=== PATIENT | female | born 1990 | race Caucasian/White ===

== ENCOUNTER → 2017-05-30 | Outpatient (CLI) | payer BC ==
[2017-05-30 16:54] LABS: URINE APPEARANCE CLEAR (CLEAR); URINE BILIRUBIN NEG (NEG); URINE COLOR YELLOW; URINE EPITHELIAL CELL AUTO 20-30 /lpf (0-5); URINE NITRITE POS (NEG); URINE PH 5.5 (4.5-7.5); URINE SPECIFIC GRAVITY 1.028 (1.000-1.030); UROBILINOGEN NEG (NEG)
[2017-05-30 16:59] LABS: MANUAL MICROSCOPIC REQUIRED? NO; REVIEW REQ? NO
== END | disposition home or self-care (01) ==
LOC: C.LABSPEC 13:20
PROVIDERS: ATTEND Obstetrics & Gynecology
DX: O34.219 Maternal care for unspecified type scar from previous cesarean delivery (principal)

== ENCOUNTER → 2017-06-05 | Outpatient (CLI) | payer BC ==
[2017-06-05 13:23] LABS: BASO % 0.4 %; BASO ABS # 0.03 K/uL (0-0.2); COMPLETE YES; EOS % 0.5 %; HEMATOCRIT 43.6 % (37-47); IG% 0.4 %; LYMPH % 29.5 %; LYMPH ABS # 2.48 K/uL (1.2-3.4); MEAN CELL VOLUME 88.1 fL (80-100); MEAN CORPUSCULAR HEMOGLOBIN 28.7 pg (25-34); MEAN CORPUSCULAR HGB CONC 32.6 g/dl (32-36); MEAN PLATELET VOLUME 10.9 fL (7.4-10.4); MONO % 6.3 %; NEUT % 62.9 %; PLATELET COUNT 246 K/uL (130-400); RED BLOOD COUNT 4.95 M/uL (4.2-5.4); WHITE BLOOD COUNT 8.42 K/uL (4.8-10.8)
[2017-06-07 15:16] LABS: CHLAMYDIA TRACH RNA*** NOT DETECTED (NOT DETECTED); GC (NEIS GONORRHOEAE)RNA** NOT DETECTED (NOT DETECTED)
== END | disposition home or self-care (01) ==
LOC: C.LAB1850 12:04
PROVIDERS: ATTEND Obstetrics & Gynecology
DX: Z34.91 Encounter for supervision of normal pregnancy, unspecified, first trimester (principal); Z3A.00 Weeks of gestation of pregnancy not specified

== ENCOUNTER → 2017-06-05 | Outpatient (CLI) | payer BC | END | disposition home or self-care (01) | LOC: C.PAPS 09:47 | PROVIDERS: ATTEND Obstetrics & Gynecology | DX: Z34.90 Encounter for supervision of normal pregnancy, unspecified, unspecified trimester (principal); Z3A.00 Weeks of gestation of pregnancy not specified ==

== ENCOUNTER → 2017-07-23 | Outpatient (CLI) | payer BC ==
[2017-07-23 12:10] LABS: GTGD 50 Grams
== END | disposition home or self-care (01) ==
LOC: C.LAB1850 10:09
PROVIDERS: ATTEND Obstetrics & Gynecology
DX: Z34.91 Encounter for supervision of normal pregnancy, unspecified, first trimester (principal)

== ENCOUNTER → 2017-08-01 | Outpatient (CLI) | payer BC | END | disposition home or self-care (01) | LOC: C.LAB1850 08:16 | PROVIDERS: ATTEND Obstetrics & Gynecology | DX: O28.1 Abnormal biochemical finding on antenatal screening of mother (principal); Z3A.00 Weeks of gestation of pregnancy not specified ==

== ENCOUNTER → 2017-08-21 | Outpatient (CLI) | payer BC ==
[~2017-08-21] MED LIST: MTR600X PO; OXYC-57 PO; PRENTAB26 PO
== END | disposition home or self-care (01) ==
LOC: C.LABSPEC 13:57
PROVIDERS: ATTEND Obstetrics & Gynecology
DX: O23.40 Unspecified infection of urinary tract in pregnancy, unspecified trimester (principal); Z3A.00 Weeks of gestation of pregnancy not specified

== ENCOUNTER → 2017-10-15 | Outpatient (CLI) | payer BC ==
[2017-10-15 10:02] LABS: HEMATOCRIT 36.6 % (37-47); HEMOGLOBIN 12.6 g/dL (12.0-16.0)
== END | disposition home or self-care (01) ==
LOC: C.LAB1850 09:14
PROVIDERS: ATTEND Obstetrics & Gynecology
DX: Z34.93 Encounter for supervision of normal pregnancy, unspecified, third trimester (principal)

== ENCOUNTER → 2017-10-19 | Outpatient (CLI) | payer BC | END | disposition home or self-care (01) | LOC: C.LAB1850 08:01 | PROVIDERS: ATTEND Obstetrics & Gynecology | DX: Z34.93 Encounter for supervision of normal pregnancy, unspecified, third trimester (principal) ==

== ENCOUNTER → 2017-12-14 | Outpatient (CLI) | payer BC | END | disposition home or self-care (01) | LOC: C.LABSPEC 15:49 | PROVIDERS: ATTEND Obstetrics & Gynecology | DX: Z34.83 Encounter for supervision of other normal pregnancy, third trimester (principal) ==

== ENCOUNTER 2018-01-04 05:27 | Inpatient (IN) | payer BC ==
--- NOTE | 2018-01-03 15:13 | PAT Medication Instructions ---
Service Date January 03, 2018. Current Home Medication List Multivit/Min/Iron/Fol Ac/Pren ( Vitamin), 1 TAB PO QAM Medication Instructions For Your Scheduled Surgery - Hold the following medications the morning of surgery: Multivit/Min/Iron/Fol Ac/Pren ( Vitamin), 1 TAB PO QAM If you have any questions please call us at [phone] or [phone] or [phone]
[2018-01-03 15:48] LABS: BASO % 0.1 %; BASO ABS # 0.01 K/uL (0-0.2); EOS % 0.4 %; EOS ABS # 0.04 K/uL (0-0.5); HEMATOCRIT 37.7 % (37-47); HEMOGLOBIN 12.9 g/dL (12.0-16.0); IG# 0.09 K/uL (0.00-0.02); LYMPH % 23.4 %; LYMPH ABS # 2.17 K/uL (1.2-3.4); MEAN CELL VOLUME 88.3 fL (80-100); MEAN CORPUSCULAR HEMOGLOBIN 30.2 pg (25-34); MEAN CORPUSCULAR HGB CONC 34.2 g/dl (32-36); MONO % 5.7 %; MONO ABS # 0.53 K/uL (0.11-0.59); NEUT % 69.4 %; NEUT ABS # 6.44 K/uL (1.4-6.5); PLATELET COUNT 152 K/uL (130-400); RED CELL DISTRIBUTION WIDTH CV 13.7 % (11.5-14.5); RED CELL DISTRIBUTION WIDTH SD 44.5 fL (36.4-46.3); WHITE BLOOD COUNT 9.28 K/uL (4.8-10.8)
--- NOTE | 2018-01-03 16:05 | HISTORY & PHYSICAL EXAMINATION ---
DATE OF ADMISSION: 01/04/2018 PRINCIPAL DIAGNOSIS: Intrauterine at 39 weeks with prior section. PRINCIPAL PROCEDURE: Repeat low transverse section and bilateral tubal ligation for undesired fertility and multiparity. HISTORY OF PRESENT ILLNESS: Patient is a 27-year-old 2, para 1-0-0-1 white female, EDC of 01/09/2018 who presents for repeat section. Prior section was done because of failure to progress at 4 cm dilated. She is requesting repeat section with bilateral tubal ligation for undesired fertility. She understands the risks of procedure including the risk for future pregnancies both ectopic and intrauterine and she is willing to proceed. PAST MEDICAL HISTORY: History of migraines, but no current medications. PAST SURGICAL HISTORY: [place] teeth removed, cholecystectomy and section. ALLERGIES: She has no known drug allergies. MEDICATIONS: vitamins. OBSTETRICAL AND GYNECOLOGICAL HISTORY: Periods are every 28 days. No history of PID, VD or herpes. Pap smears have been within normal limits. In 2016, delivery at 41 and 2/7 weeks for an 8-pound viable male by section because of failure to progress. SOCIAL HISTORY: She does not smoke or drink. FAMILY HISTORY: Noncontributory. HISTORY: Blood type is O positive, antibody screen is negative. Rubella is immune. RPR is nonreactive. Hepatitis is negative. HIV is negative. Blood glucose at 16 weeks was elevated, 2-hour GTT was within normal limits as well as at 28 weeks. Hemoglobin at 28 weeks was 12.6, hematocrit 36.6. Ultrasound for anatomy was complete and normal. Group B strep is negative. PHYSICAL EXAMINATION: GENERAL: She is a well-nourished, well-developed white female in no apparent distress. LUNGS: Clear to auscultation. HEART: Regular rate and rhythm. No murmurs or gallops. ABDOMEN: Gravid, fundal height measuring 37 cm. She has a well-healed low transverse skin incision. No hepatosplenomegaly or masses are palpable. PELVIC: Deferred today. EXTREMITIES: Without cyanosis and with trace edema of her ankles. ASSESSMENT AND PLAN: A 27-year-old presenting for repeat section and bilateral tubal ligation because of undesired fertility and multiparity. The procedure and its risks were reviewed with the patient at length. All her questions were answered to her satisfaction. Please see the orders for further directions. MTDD
[~2018-01-04] VITALS: Ht 170.2 cm; Wt 97.5 kg
[2018-01-04] VITALS (9 sets, daily range): BP systolic 100–114; BP diastolic 65–74; PULSE 62–73; TEMP 36.3–37.1; O2SAT 98–100; Ht 170.2 cm; Wt 97.5 kg
[~2018-01-04 05:27] MED LIST changes: -MTR600X PO; -OXYC-57 PO
[2018-01-04] MEDS ORDERED: LACTATED RINGER'S 1000ML 1,000 ML IV SCH ×3 (05:51→06:15)
[2018-01-04] MEDS ORDERED: CITRIC ACID/SODIUM CITRATE 15 ML UDC PO SCH (06:00)
[2018-01-04] MEDS ORDERED: CEFAZOLIN IV 2,000 MG in SYRINGE 0 ML IV SCH (06:00)
[2018-01-04 06:41] LABS: BASO % 0.2 %; BASO ABS # 0.02 K/uL (0-0.2); EOS % 0.6 %; EOS ABS # 0.05 K/uL (0-0.5); HEMATOCRIT 36.6 % (37-47); HEMOGLOBIN 12.5 g/dL (12.0-16.0); IG# 0.09 K/uL (0.00-0.02); LYMPH % 30.9 %; LYMPH ABS # 2.64 K/uL (1.2-3.4); MEAN CORPUSCULAR HGB CONC 34.2 g/dl (32-36); MEAN PLATELET VOLUME 11.2 fL (7.4-10.4); MONO % 6.9 %; MONO ABS # 0.59 K/uL (0.11-0.59); NEUT % 60.3 %; NEUT ABS # 5.15 K/uL (1.4-6.5); PLATELET COUNT 143 K/uL (130-400); RED CELL DISTRIBUTION WIDTH CV 13.9 % (11.5-14.5); RED CELL DISTRIBUTION WIDTH SD 44.3 fL (36.4-46.3); WHITE BLOOD COUNT 8.54 K/uL (4.8-10.8)
[2018-01-04] MEDS ORDERED: MoRPHine SULFATE PF 1 MG/ML 10 ML AMP/VIAL ONE (07:04)
[2018-01-04] MEDS ORDERED: BUPIVACAINE/DEXTROSE 0.75%-8.25% 2 ML AMP ONE (07:07)
--- NOTE | 2018-01-04 07:15 | History & Physical Bridge Note ---
H&P Re-Evaluation Bridge Note: I have examined the patient, reviewed the History & Physical and in the interval since the performance of the History & Physical I have noted the following changes of clinical significance: No changes noted
[2018-01-04] MEDS ORDERED: OXYTOCIN INJ 10 UNITS/ML VIAL ONE (09:01)
[2018-01-04] MEDS ORDERED: KETOROLAC TROMETHAMINE 30 MG/ML VIAL ONE (09:08)
[2018-01-04] MEDS ORDERED: ONDANSETRON INJ 2 MG/ML 2 ML VIAL ONE (09:08)
[2018-01-04] MEDS ORDERED: OXYTOCIN INJ 10 UNITS/ML VIAL INJ ONE (09:25)
[2018-01-04] MEDS ORDERED: DIPHTHERIA/TETANUS/PERTUSSIS 0.5 ML SYR/VIAL IM. ONE (09:30)
[2018-01-04] MEDS ORDERED: MAGNESIUM HYDROXIDE SUSP 30 ML UDC PO PRN (09:30)
[2018-01-04] MEDS ORDERED: LANOLIN OINT EXT PRN (09:30)
[2018-01-04] MEDS ORDERED: HYDROCORTISONE ACETATE 25 MG SUPP PR PRN (09:30)
[2018-01-04] MEDS ORDERED: BENZOCAINE 20% AER SPR 82.5 GM CAN EXT PRN (09:30)
[2018-01-04] MEDS ORDERED: SUPERCREAM 0.870 % 15GM JAR EXT PRN (09:30)
--- NOTE | 2018-01-04 09:35 | [facility] Post Operative Brief Note ---
Immediate Operative Summary Operative Date January 04, 2018. Pre-Operative Diagnosis Intrauterine at 39 weeks with prior caesarean section, unwanted fertility, multiparity. Post-Operative Diagnosis Same as pre-op Procedure(s) Performed low uterine transverse incision, repeat caesarean section, and bilateral tubal ligation, delivery live male child at [address] Paula Crenshaw Humanities And Languages Professor Surgeon(s) Dr. Neftaly Sheikh Estimated Blood Loss 500 ml Findings Consistent with Post-Op Diagnosis normal tubes & ovaries gravid uterus Fluids (cc crystalloids) 1300 Specimens A: placenta- hold B: cord blood C: Portion of Right fallopian tube D: Portion of Left fallopian tube Drains Trammell to straigth drainage- clear urine at end of case Anesthesia Type Spinal Complication(s) none Disposition Accompanied Pt To Recover: yes Disposition: L&D
--- NOTE | 2018-01-04 10:00 | Anesthesiology Progress Note ---
Anesthesia Post Op Note Date & Time January 04, 2018 at 09:59 Notes Mental Status: alert / awake / arousable, participated in evaluation Pt Amnestic to Procedure: Yes Nausea / Vomiting: adequately controlled Pain: adequately controlled Airway Patency, RR, SpO2: stable & adequate BP & HR: stable & adequate Hydration State: stable & adequate Neuraxial Anesthesia: was administered, sensory block is resolving Anesthetic Complications: no major complications apparent
[2018-01-04] MEDS ORDERED: SODIUM CHLORIDE 0.9% 1000ML 1,000 ML IV PRN (10:13)
[2018-01-04] MEDS ORDERED: NALOXONE HCL INJ 0.08 MG in SYRINGE 1.8 ML IV PRN (10:13)
[2018-01-04] MEDS ORDERED: NALOXONE HCL INJ 1 MG in SODIUM CHLORIDE 0.9% 1000ML 1,000 ML IV PRN (10:13)
[2018-01-04] MEDS ORDERED: LACTATED RINGER'S 1000ML 500 ML IV PRN (10:13)
[2018-01-04] MEDS ORDERED: EpHEDrine SULFATE INJ 50 MG/ML AMP IV PRN (10:15)
[2018-01-04] MEDS ORDERED: NO NARCOTICS OR SEDATIVES SCH (10:15)
[2018-01-04] MEDS ORDERED: NALBUPHINE HCL INJ 10 MG/ML AMP IV PRN (10:15)
[2018-01-04] MEDS ORDERED: DiphenhydrAMINE HCL 50 MG/ML VIAL IV PRN (10:15)
[2018-01-04] MEDS ORDERED: ONDANSETRON INJ 2 MG/ML 2 ML VIAL IV PRN (10:15)
[2018-01-04] MEDS ORDERED: MoRPHine SULFATE 2 MG/ML CARP IV PRN (10:15)
[2018-01-04] MEDS ORDERED: NALOXONE HCL 0.4 MG/1 ML VIAL/CARP IV PRN (10:15)
[2018-01-04] MEDS ORDERED: MoRPHine SULFATE PF 1 MG/ML 10 ML AMP/VIAL EPI PRN (10:15)
[2018-01-04] MEDS ORDERED: ACETAMINOPHEN IV 100 ML IV PRN (10:30)
[2018-01-04] MEDS: OXYTOCIN INJ 20 UNITS in LACTATED RINGER'S 1000ML 1,000 ML IV SCH ×2 (10:59→19:00)
[2018-01-04] MEDS ORDERED: MTR600X PO (13:54)
[2018-01-04] MEDS ORDERED: OXYC-57 PO (13:54)
--- NOTE | 2018-01-04 13:55 | Discharge Instructions ---
Discharge Instructions Date of Service January 04, 2018. Admission Reason for Admission: Previous Section, Desires Sterilization Discharge Discharge Diagnosis / Problem: repeat &tubal ligation Discharge Goals Goal(s): Routine recovery after Activity Recommendations Activity Limitations: per Instructions/Follow-up section . Instructions / Follow-Up Instructions / Follow-Up ACTIVITY RECOMMENDATIONS: * Gradual return to full activity over the next 2-3 weeks. * No lifting - nothing heavier than baby over the next 2-3 weeks. * Do not engage in vigorous exercise, sexual activity or sports until cleared by your physician. * Do not drive or operate any motorized equipment until cleared by your physician. * You may shower/bathe daily. MEDICATIONS: For discomfort or pain, you may use Acetaminophen (Tylenol), Ibuprofen (Advil), or Naproxen (Aleve) following the package directions. For constipation you may use Colace following the package directions. BREAST CARE: If you are not breast feeding: * Wear a supportive bra 24 hours a day for one to two weeks. * Avoid stimulating your breasts and nipples as much as possible during the first few weeks after delivery. * When taking a shower, have the warm water hit your back, not breasts. * When your breasts feel full, apply ice packs. Usually three to four times a day helps ease the discomfort. * Take a mild pain medication (Tylenol / Motrin) when you are uncomfortable. If breast feeding: * Use breast milk to lubricate nipples. Lansinoh cream may be used for sore nipples. You do not need to remove cream prior to breast feeding. If using a different brand of cream, check the label for directions regarding removal of cream prior to nursing. * Wear a supportive bra. * If having problems with breasts or breast feeding, call a renewable energy consultant or your health care provider. SPECIAL CARE INSTRUCTIONS: When you are discharged from the hospital, it is important for you to follow the instructions listed below: * During the first week at home, you should be able to care for yourself and your baby. In addition, the usual light household activities are encouraged. * Limit your activities to the way you feel. Do not try to clean the house or move furniture. Be sensible. * If you actively engage in sports and have done so up until the time of your delivery, you may resume these activities as soon as you feel able. This may take up to one month or even longer. Use good judgment. * Continue to take your vitamins for at least six weeks after the of your baby. * Your diet need not be limited unless you were on a special diet before your delivery. Breast-feeding mothers need around 2500 calories per day and at least 64-80 ounces of fluid per day (8 to 10 glasses). * You should eat foods from the four major food groups. Crash diets or fad diets are to be avoided. Eating lean meats, fresh fruits and vegetables, low-fat dairy products, high fiber foods and a regular exercise program, will help you get back to your pre- weight without putting your health at risk. * Constipation is sometimes a problem after delivery. Take a mild laxative as needed. If breast feeding, Milk of Magnesia is acceptable to use. You may use a suppository or Fleets enema. * A daily shower or tub bath is suggested. Wash incision daily with warm soapy water and pat dry. It doesn't need to be covered unless drainage is present. * A bloody vaginal discharge will usually continue until around four weeks . A small amount of bleeding may continue for as long as six weeks. Vaginal discharge changes from the bright red bleeding after delivery to pink then brownish and finally yellowish-pink before becoming white and disappearing. * Bleeding may increase with activity. Your first period may come in 4-8 weeks. If you are breast feeding, your period may be delayed even longer. * [place] (sex) can begin whenever both you and your partner feel comfortable and do not have any form of genital infection. It is recommended that you wait at least six weeks for internal and external healing to occur. If you have questions, please talk to your health care practitioner. A condom should be used to prevent infection and . * Foreplay, gentle intercourse and lubrication is very important the first several times to prevent pain. A water-based lubricant such as K-Y jelly or Astroglide may be used. * If you have RH negative blood and your baby is RH positive, you will receive RHOGAM by injection prior to discharge. The nurse will give you a card to keep with you that has the date and place that you received RHOGAM after delivery. * During your care, you had a Rubella screen done to check for the presence of rubella antibodies in your blood. If your test was negative, you will receive a Rubella vaccine prior to discharge. This vaccine may cause a fever, soreness at the injection site and flu-like symptoms. If these symptoms persist, notify your health care practitioner. is not advised for one month after a Rubella vaccine. * Verbalizes understanding of car seat law as reviewed with patient nursing. * Car Seat hand-out given and reviewed with patient by nursing. * Shaken baby information reviewed with patient by nursing. Call you doctor if: * Heavy bleeding (saturating several pads an hour) or passing clots the size of your fist. * A fever >101 degrees F (38.3 degrees C) on two occasions four hours apart and /or chills. * Unusual pain in the pelvic or vaginal areas. * Call the doctor for any increased redness, drainage or swelling around the incision and any pain unrelieved by prescribed pain medication. * "Baby Blues" lasting longer than two weeks. If you have any questions or concerns, call your health care practitioner at . FOLLOW UP VISIT: * Please call the office at to schedule a 6 week examination. It is important you keep this appointment. It is important for you to make arrangements for either yearly or twice yearly check-ups thereafter. Current Hospital Diet Patient's current hospital diet: Clear Liquid Diet Discharge Diet Recommended Diet: Regular OB Diet Procedures Procedures Performed: low uterine transverse incision, repeat caesarean section, and bilateral tubal ligation, delivery live male child at 0856 Pending Studies Studies pending at discharge: no Medical Emergencies . Who to Call and When: Medical Emergencies: If at any time you feel your situation is an emergency, please call [phone] immediately. . Non-Emergent Contact Non-Emergency issues call your: Cash Application Representative . . "Provider Documentation" section prepared by Arminda Meyer .
--- NOTE | 2018-01-04 14:07 | OPERATIVE REPORT ---
DATE OF OPERATION: 01/04/2018 SURGEON: Arminda Mckay MD CALL CIRCUIT WORKER: Dr. Myah Albarran, PGY-1 PREOPERATIVE DIAGNOSES: Intrauterine at 39 weeks, prior section, unwanted fertility and multiparity. PRINCIPAL PROCEDURE: A repeat low transverse section with bilateral modified Jansen tubal ligation. ANESTHESIA: Subarachnoid block. BLOOD LOSS: 500 mL. HISTORY: The patient is a 27-year-old 2, para 1-0-0-1 white female, EDC of 01/09/2018, who presents for a repeat section. Her first section was done because of failure to progress at 4 cm dilation. She is now requesting repeat section with bilateral tubal ligation. She understands the risk of procedure including the risks for future pregnancies both intrauterine and ectopic and she is willing to proceed. GROSS FINDINGS: Uterus is gravid and consistent with a term in size. Bilateral ovaries and fallopian tubes are grossly normal. PROCEDURE IN DETAIL: After the patient received adequate subarachnoid block, she was prepped and draped in the usual sterile fashion. A low transverse skin incision was made through a prior scar and carried to the fascia with the same scalpel. The fascial incision was then extended with Maki scissors. The edges were then grasped with Gregory clamps and the underlying rectus muscle was bluntly and sharply dissected off of the overlying fascia. The rectus muscles were already on the midline to the peritoneal cavity. The bladder was then taken down off of the anterior surface of the uterus and placed behind the bladder blade. The lower uterine segment was entered with the scalpel and extended transversely. Membranes were ruptured for clear fluid. The was delivered from the vertex presentation with moderate fundal pressure and vacuum assistance to pass the thick myometrium. Mouth and nasopharynx were suctioned on delivery. The rest of the was delivered without difficulty. The cord was clamped and cut and the was handed off to Dr. Collado who was in attendance as latexer. The placenta was expressed intact with a 3-vessel cord. The uterus was then exteriorized and covered with a clean lap sponge. The uterine cavity was explored and found to be free of any placental tissue or membranes. The uterus was closed in 2 layers in a running locking imbricating fashion with 0 Monocryl. Hemostasis was noted to be excellent at the uterine incision. Attention was then turned to the tubal. The left fallopian tube was identified and followed to its fimbriated end, it was then grasped in the mid portion with a [place] clamp. A knuckle of tube was developed with a tie of 3-0 plain catgut followed by suture ligature of the same. The knuckle of tube was then removed and the remaining tube was cauterized at the incision sites. Hemostasis was noted to be excellent. The right fallopian tube was identified and followed to its fimbriated end. It was then grasped in the mid portion with a Blaire clamp. A knuckle of tube was developed with a tie of 3-0 plain catgut followed by suture ligature of the same. The knuckle of tube was then removed and again the cut ends of the tube were cauterized with the Bovie. Hemostasis was noted to be excellent at both tubal sites and the uterine incision. The posterior cul-de-sac was then irrigated with normal saline. The uterus was gently placed back inside the abdominal cavity. The tubal sites and the uterine incision were examined once more and continued to have excellent hemostasis. A small amount of clot was taken out of the anterior cul-de-sac and this area was irrigated as well with normal saline. The rectus muscles were brought together on the midline with individual stitches of 0 Monocryl. The fascia was closed in a running fashion with 0 Vicryl. The skin edges were reapproximated using a subcuticular stitch of 4-0 Vicryl. Urine was clear at the end of the case. Mother and infant tolerated the procedure well. I attest to the content of the Intraoperative Record and any orders documented therein. Any exceptions are noted below. MARISAD
[2018-01-04] MEDS: KETOROLAC TROMETHAMINE 30 MG/ML VIAL IV. PRN ×2 (15:59→23:42)
[2018-01-04] MEDS: DOCUSATE SODIUM 100 MG CAP PO SCH (20:12)
[2018-01-05] VITALS (10 sets, daily range): BP systolic 106–112; BP diastolic 71–84; PULSE 65–92; TEMP 36.5–37.3; O2SAT 96–100
[2018-01-05] MEDS: OXYTOCIN INJ 20 UNITS in LACTATED RINGER'S 1000ML 1,000 ML IV SCH (02:52)
[2018-01-05] MEDS: KETOROLAC TROMETHAMINE 30 MG/ML VIAL IV. PRN (05:53)
[2018-01-05] MEDS ORDERED: DC INTRASPINAL MORPHINE ONE (06:00)
[2018-01-05] MEDS ORDERED: ONDANSETRON INJ 2 MG/ML 2 ML VIAL IV PRN (06:01)
[2018-01-05] MEDS ORDERED: KETOROLAC TROMETHAMINE 30 MG/ML VIAL IV. PRN (06:01)
[2018-01-05] MEDS ORDERED: DiphenhydrAMINE HCL 50 MG/ML VIAL IV PRN (06:01)
[2018-01-05] MEDS ORDERED: ZOLPIDEM TARTRATE 5 MG TAB PO PRN (06:01)
[2018-01-05] MEDS ORDERED: OXYCODONE/ACETAMINOPHEN 5-325 TAB PO PRN (06:01)
--- NOTE | 2018-01-05 06:53 | Progress Note ---
Subjective January 05, 2018. Subjective conversation w/ patient Ambulation: limited ambulation Voiding: no voiding problems (pt had catheter removed this AM, has not voided as yet) Passing Gas: Yes Lochia: Moderate Feeding Type: Bottle Feeding Pain: dull abdominal ache reported, improved with analgesia Review of Systems Constitutional: No fever, No chills Respiratory: No shortness of breath Cardiac: No chest pain Abdomen: No nausea, No vomiting Objective Vital Signs Date Time Temp Pulse Resp B/P (MAP) Pulse Ox O2 Delivery O2 Flow Rate FiO2 01/05/18 05:45 18 99 01/05/18 04:45 20 99 01/05/18 04:15 36.7 65 20 108/72 (84) 98 Room Air 01/05/18 03:45 17 99 01/05/18 02:45 20 98 01/05/18 01:45 18 100 01/05/18 00:45 18 99 01/04/18 23:45 99 Room Air 01/04/18 23:45 18 99 01/04/18 23:45 36.6 62 18 100/65 (77) Room Air 01/04/18 19:00 37.1 70 20 114/74 (87) 99 Room Air 01/04/18 19:00 20 99 01/04/18 18:00 20 99 01/04/18 17:00 20 99 01/04/18 16:00 20 98 01/04/18 15:00 37.0 69 20 104/67 (79) 99 Room Air 01/04/18 15:00 20 99 01/04/18 15:00 99 Room Air 01/04/18 14:20 18 99 01/04/18 13:30 18 99 01/04/18 12:30 20 100 01/04/18 12:30 100 Room Air 01/04/18 12:30 36.3 73 20 107/65 (79) 100 Room Air Physical Exam General Appearance: WELL-APPEARING, WD/WN, NO APPARENT DISTRESS Respiratory/Chest: lungs clear, normal breath sounds Cardiovascular: regular rate, rhythm Abdomen: soft Fundus: Firm, Tender, Relation to Umbilicus (at u) Incision Description: Clean, Dry & Intact Extremities: no pedal edema, no calf tenderness Laboratory Results Last 24 Hours Test 01/05/18 06:24 Assessment and Plan Problem List Medical Problems: (1) Non-cardiac chest pain Status: Acute Post-Op Day#: 1 Continue Routine Care: 27F s/p repeat with tubal ligation day 1 - O+, Rubella Immune, GBS -ve - pt doing well clinically - Vital signs reviewed and WNL - advance diet to full this AM - Encourage ambulation, monitor and control pain Resident Physician Supervision Note: I interviewed and examined the patient. Discussed with Dr. Albarran and agree with findings and plan as documented in the note. Any exceptions or clarifications are listed here: Routine post-op care Documented By: Samir Nolen Resident Tracking Resident Involvement: Resident Care Provided Care Provided: OB Delivery
[2018-01-05 07:10] LABS: BASO % 0.2 %; BASO ABS # 0.02 K/uL (0-0.2); EOS % 0.6 %; EOS ABS # 0.06 K/uL (0-0.5); HEMATOCRIT 35.9 % (37-47); IG# 0.05 K/uL (0.00-0.02); LYMPH % 17.7 %; MEAN CELL VOLUME 89.8 fL (80-100); MEAN CORPUSCULAR HGB CONC 33.4 g/dl (32-36); MEAN PLATELET VOLUME 11.2 fL (7.4-10.4); MONO % 5.4 %; MONO ABS # 0.52 K/uL (0.11-0.59); NEUT % 75.6 %; NEUT ABS # 7.27 K/uL (1.4-6.5); PLATELET COUNT 127 K/uL (130-400); RED CELL DISTRIBUTION WIDTH CV 13.8 % (11.5-14.5); RED CELL DISTRIBUTION WIDTH SD 45.3 fL (36.4-46.3); WHITE BLOOD COUNT 9.62 K/uL (4.8-10.8)
[2018-01-05] MEDS ORDERED: PRENATAL VITAMIN TAB PO SCH (08:00)
[2018-01-05] MEDS: DOCUSATE SODIUM 100 MG CAP PO SCH ×2 (08:32→19:55)
[2018-01-05] MEDS: PRENATAL VITAMIN TAB PO SCH (08:33)
[2018-01-05] MEDS: IBUPROFEN 600 MG TAB PO PRN ×3 (12:20→23:36)
[2018-01-05] MEDS ORDERED: BISACODYL 5 MG TABEC ONE (19:54)
[2018-01-05] MEDS: OXYCODONE/ACETAMINOPHEN 5-325 TAB PO PRN (19:57)
[2018-01-05] MEDS ORDERED: BISACODYL 5 MG TABEC PO ONE (22:00)
[2018-01-06] MEDS: IBUPROFEN 600 MG TAB PO PRN (06:20)
[2018-01-06 06:33] LABS: HEMATOCRIT 34.7 % (37-47); HEMOGLOBIN 11.6 g/dL (12.0-16.0)
[2018-01-06] MEDS: DOCUSATE SODIUM 100 MG CAP PO SCH (08:18)
[2018-01-06] MEDS: PRENATAL VITAMIN TAB PO SCH (08:18)
[2018-01-06 08:19] VITALS: BP 114/82; PULSE 82; TEMP 37
[2018-01-06] MEDS: OXYCODONE/ACETAMINOPHEN 5-325 TAB PO PRN (08:20)
--- NOTE | 2018-01-06 08:33 | Progress Note ---
Subjective January 06, 2018. Subjective conversation w/ patient, physical exam Ambulation: ambulating normally Voiding: no voiding problems (pt had catheter removed this AM, has not voided as yet) Passing Gas: Yes Diet Tolerance: Regular Diet Lochia: Small Feeding Type: Bottle Feeding Review of Systems Constitutional: No fever, No chills, No sweats, No weight loss, No weakness, No fatigue, No problem reported Breast: No see HPI, No breast lump, No change in shape, No nipple discharge, No breast pain, No problem reported Abdomen: No pain, No nausea, No vomiting, No diarrhea, No constipation, No GI bleeding, No problem reported Female : No see HPI, No dysuria, No urinary frequency, No hematuria, No incontinence, No abnormal vaginal bleeding, No vaginal discharge, No problem reported Objective Vital Signs Date Time Temp Pulse Resp B/P (MAP) Pulse Ox O2 Delivery O2 Flow Rate FiO2 01/06/18 08:19 37.0 82 20 114/82 (93) Room Air 01/05/18 23:40 36.5 68 16 106/71 (83) 96 Room Air 01/05/18 23:40 Room Air 01/05/18 16:00 37.1 69 16 112/71 (85) 97 Room Air 01/05/18 16:00 97 Room Air Physical Exam General Appearance: WELL-APPEARING, NO APPARENT DISTRESS Abdomen: soft Fundus: Firm, Non-Tender, Relation to Umbilicus (2 below U) Incision Description: Clean, Dry & Intact, Ecchymosis (mild ecchymosis superior to incision) Extremities: no calf tenderness Laboratory Results Last 24 Hours Test 01/06/18 06:24 Hemoglobin 11.6 g/dL Hematocrit 34.7 % Assessment and Plan Problem List Medical Problems: (1) Non-cardiac chest pain Status: Acute Post-Op Day#: 2 Continue Routine Care: stable post-op course discharge to home with scripts for percocet & motrin follow up in 6 weeks.
[2018-01-06] MEDS ORDERED: BISACODYL 10 MG SUPP PR PRN (09:30)
[2018-01-06 11:20] VITALS: BP_DIAS 82; PULSE 82; TEMP 37
--- NOTE | 2018-01-07 06:08 | DISCHARGE SUMMARY ---
PRINCIPAL DIAGNOSIS: Intrauterine at term, 39 weeks with prior section and unwanted fertility and multiparity HISTORY: The patient is a 27-year-old 2, para 1-0-0-1 white female, EDC of 01/09/2018 who presented for repeat section. This was done without complications as well as a bilateral tubal ligation. She had an uncomplicated postop course. She remained afebrile throughout her hospital stay. She was eating regular diet on her 1st postop day, ambulating well, and voiding without difficulty. She was sent home on the second day in good condition with prescriptions for Percocet 1-2 tablets p.o. q. 4 hours p.r.n. pain, Motrin 600 mg p.o. q. 4 hours p.r.n. pain. Hemoglobin on admission was 12.5, hematocrit of 36.6. First postop day hemoglobin 12.0, hematocrit 35.9. Second postop day hemoglobin 11.6, hematocrit 34.7. She is to call for an appointment to be seen in 6 weeks for routine and postop visit. She is to call for a temperature of 101 degrees or higher, heavy vaginal bleeding, burning with urination, increased redness, drainage or pain in her incision, calf tenderness or any other concerns.
== END 2018-01-06 11:20 | disposition home or self-care (01) | DRG 766 ==
LOC: C.LD 05:27 → EDSTATUS 07:30 → C.OBG 15:12
PROVIDERS: ADMIT Obstetrics & Gynecology; ATTEND Obstetrics & Gynecology
PROC: 10D00Z1 Extraction of Products of Conception, Low, Open Approach (ICD-10-PCS; principal; 2018-01-04 07:30)
PROC: 0UB70ZZ Excision of Bilateral Fallopian Tubes, Open Approach (ICD-10-PCS; principal; 2018-01-04 07:30)
DX: O34.211 Maternal care for low transverse scar from previous cesarean delivery (principal); Z3A.39 39 weeks gestation of pregnancy; Z37.0 Single live birth; Z30.2 Encounter for sterilization